=== PATIENT | female | born 2005 | race Caucasian/White ===

== ENCOUNTER → 2023-07-08 19:53 | Outpatient (REF) | payer OTHER, SELFPAY | LOC: MRI 19:53 | PROVIDERS: ATTENDING PHYSICIAN Psychiatry & Neurology Neurology; FAMILY PHYSICIAN Nurse Practitioner Family | DX: G43.109 Migraine with aura, not intractable, without status migrainosus (principal) | CPT/HCPCS: 70553; A9575 ==

== ENCOUNTER → 2023-11-19 08:26 | Outpatient (REF) | payer OTHER, SELFPAY | LOC: RCS 08:26 | PROVIDERS: ATTENDING PHYSICIAN Family Medicine | DX: R00.2 Palpitations (principal); R07.89 Other chest pain; R06.09 Other forms of dyspnea | CPT/HCPCS: 93225; 93226 ==

== ENCOUNTER → 2023-11-22 10:28 | Outpatient (REF) | payer OTHER, SELFPAY | LOC: RCS 10:28 | PROVIDERS: ATTENDING PHYSICIAN Family Medicine | DX: R00.2 Palpitations (principal); R07.89 Other chest pain; R06.09 Other forms of dyspnea | CPT/HCPCS: 93306 ==

== ENCOUNTER → 2023-12-02 13:07 | Outpatient (REF) | payer OTHER, SELFPAY | LOC: RCS 13:07 | PROVIDERS: ATTENDING PHYSICIAN Internal Medicine Cardiovascular Disease; FAMILY PHYSICIAN Nurse Practitioner Family | DX: R07.9 Chest pain, unspecified (principal); R06.09 Other forms of dyspnea; I05.9 Rheumatic mitral valve disease, unspecified | CPT/HCPCS: 93017; 93350 ==

== ENCOUNTER → 2023-12-24 11:07 | Outpatient (REF) | payer OTHER, SELFPAY | LOC: RAD 11:07 | PROVIDERS: ATTENDING PHYSICIAN Internal Medicine Cardiovascular Disease; FAMILY PHYSICIAN Nurse Practitioner Family; REFERRING PHYSICIAN Internal Medicine Critical Care Medicine | DX: R07.9 Chest pain, unspecified (principal); R94.39 Abnormal result of other cardiovascular function study | CPT/HCPCS: 75574; Q9967 ==

== ENCOUNTER 2024-03-16 05:31 | Emergency (ER) | payer OTHER, SELFPAY ==
[2024-03-16 05:31] VITALS: BMI 21.3
[2024-03-16 05:52] VITALS: BP 118/84
[2024-03-16 06:00] VITALS: BP 108/57
--- NOTE | 2024-03-16 09:43 | ED.GENMED ---
History of Present Illness
General
Chief Complaint: Cold/Flu/URI Symptoms
Source: patient
Exam Limitations: none
Time Seen by Provider: 03/16/24 09:16
Nursing documentation reviewed up to this point in time: agreed with
History of Present Illness
History of Present Illness:
Patient is a 18-year-old female with history of mitral valve prolapse who presents to the ER for evaluation. Patient started with cough yesterday however was awoke in the middle of the night with chills and chest and back pain. Patient has not
taken anything for discomfort.
She does not smoke. She was on progesterone only oral contraception however because of migraines and stopped that a month ago. He denies any shortness of breath. Family was also sick with similar symptoms of upper respiratory tract infection as
per mom. Patient feels very nauseous has not been able to drink fluids because of nausea.
Past History
Past History
ED Past Medical History: None
ED Past Surgical History: None
Social History
Tobacco: Non-smoker
Alcohol: None
Drug: None
Personal: Single
Living: with family
Employment: Student
Family History
Family History: Other (Noncontributory)
Review of Systems
Review of Systems
Allergies reviewed?: Yes
Other source history: family
All Other Systems: ROS reviewed and negative except as documented in HPI and ROS
Constitutional: Reports fever, fatigue and chills
Respiratory: Reports cough; Denies trouble breathing
Cardiac: Reports other (chest /back pain )
ABD/GI: Reports no symptoms
: Reports no symptoms
Musculoskeletal: Reports no symptoms
Skin: Reports no symptoms
Neurological: Reports no symptoms
Psychiatric: Reports no symptoms
Phy Exam
General Physical Exam
General Presentation: no apparent distress
General age: appears stated age
General Skin: warm and dry
General Habitus: normal
General Mental: alert
General Hydration: appears well hydrated
Cardiovascular Exam
Cardiovascular Exam: regular rate/rhythm, no murmur and normal peripheral pulses
Pulmonary Exam
Pulmonary Exam: lungs clear and no respiratory distress
Sepsis
Sepsis Screening
Sepsis Assessment: Sepsis Ruled Out
Sepsis Screen
Sepsis Screen: Sepsis Ruled Out
Date: 03/17/24
Time: 13:02
Course
Orders/Labs/Results
Orders:
Orders
03/16/24 05:32
ECG [Electrocardiogram (*1)] Urgent
Reason for Study: Chest Pain
03/16/24 05:33
EKG- Treatment ONCE
03/16/24 05:59
Influenza A+B Rapid Molecular Urgent
TORSTEN Source: Nasal Swab
Specimen Description:
Date Specimen was Collected: 03/16/24
Time Specimen was Collected: 05:56
Rapid Strep Group A Urgent
TORSTEN Source: Throat/Pharynx
Specimen Description:
Date Specimen was Collected: 03/16/24
Time Specimen was Collected: 05:56
03/16/24 07:48
CR Chest - 2 Views Urgent
Comment:
Reason For Exam: cough
03/16/24 09:59
0.9% Sodium Chloride 1000 ml [Nss] 1,000 ml IV BOLUS
03/16/24 10:00
Ketorolac [Toradol] 15 mg IV NOW STA
03/16/24 10:04
Vital Signs- Treatment ONCE
Frequency: Once
03/16/24 10:39
Vital Signs- Treatment ONCE
Frequency: Once
03/16/24 11:05
Complete Blood Count/With Diff Urgent
Comprehensive Metabolic Panel Urgent
DDimer [D-Dimer] Urgent
03/16/24 11:06
COVID-19 Antigen Urgent
Source: Nasal Swab
Abnormal Lab Results
03/16/24
11:05
Plt Count 126 L 10^3/uL
(130-400)
MPV 10.7 H fL
(7.4-10.4)
Absolute Lymphs (auto) 0.3 L 10^3/uL
(1.2-3.4)
Neutrophils % 87.4 H %
(42.2-75.2)
Lymphocytes % 5.3 L %
(20.5-51.1)
Sodium 134 L mmol/L
(135-145)
03/16/24 11:05
03/16/24 11:05
Vital Signs
Initial and Last Documented VS:
Initial Vital Signs
Temp Pulse Resp BP Pulse Ox
99.6 F 122 24 118/84 100
03/16/24 05:52 03/16/24 05:52 03/16/24 05:52 03/16/24 05:52 03/16/24 05:52
Last Documented Vital Signs
Temp Pulse Resp BP Pulse Ox
100.7 F H 112 18 108/57 100
03/16/24 11:50 03/16/24 11:50 03/16/24 11:50 03/16/24 11:50 03/16/24 11:50
MDM/Problems Addressed
Differential Diagnosis Includes:
Not limited to COVID, influenza, pneumonia, viral syndrome
MDM/Problems Addressed:
Symptoms are consistent with viral syndrome. Family also has similar symptoms. Patient is nontoxic ; she is not actually short of breath. She has no risk factors for PE however D-dimer done and negative. Her labs reviewed her white count is
normal she did present with a low-grade temperature and tachycardic. Patient was given Toradol fluids feeling better. Negative COVID-negative flu likely viral syndrome discussed supportive care. Discussed with mom at bedside as well.
*Radiology
Radiology exam reviewed: radiology read reviewed
*Pulse Oximetry
Patient hypoxic: no
*EKG
Interpreted by ED Provider?: Yes
Comparison EKG: no changes
Heart Rate: 114
Rate: tachycardiac
Rhythm: sinus
Ischemia: no ischemia
*Critical Care Note
Total Time (30-74mins, 75-104mins- exclusive of procedures): Not Applicable
ED Attending Note
-
Portions of this chart may have been created with voice recognition software.� Occasional wrong word or��sound alike� substitutions may have occurred due to the inherent limitations of voice recognition software.
Discharge Plan
Departure
Patient Disposition: Home (Routine Discharge)
Date of Disposition: 03/16/24
Time of Disposition: 12:36
Patient with high blood pressure during this ER visit?: No
Condition: Fair
Covid-19: Not Applicable
Discharge Problem:
Acute viral syndrome
Instructions: Viral Syndrome (DC)
Prescriptions:
No Action
minocycline 100 mg Capsule
100 mg PO BID
norethindrone (contraceptive) 0.35 mg Tablet
0.35 mg PO DAILY
Nurtec ODT 75 mg Tablet,Disintegrating
75 mg PO Q48H
Referrals:
Mari Arreola CRNP [Family Provider] -
Activity Restrictions/Additional Instructions:
Patient to drink plenty fluids. You may alternate ibuprofen and Tylenol for fever chills body aches. Close follow-up with family doctor in the next several days return if any worsening of symptoms
Interventions
Interventions:
*Risk Screen - Suicide Last Done: 03/16/24 05:52
*Neglect/Abuse Screening Last Done: 03/16/24 05:52
*Nursing Disposition Last Done: 03/16/24 13:16
ED- Cardiac Assessment Last Done: 03/16/24 11:53
ED- Pulmonary Assessment Last Done: 03/16/24 11:53
Discharge Date and Time
Discharge Date/Time: 03/16/24 13:16
Print Language: WOLOF
[2024-03-16] MEDS: NSS 1000 IV (11:11)
[2024-03-16] MEDS: TORADOL 15 MG IV (11:11)
[2024-03-16 11:24] LABS: % Basophils 0.2 % (0-2); % Eosinophils 0.2 % (0-6); % Immature Granulocytes 0.4 % (0-0.5); % Lymphocytes 5.3 % (20.5-51.1); % Monocytes 6.5 % (1.7-9.3); % Neutrophils 87.4 % (42.2-75.2); Absolute Lymphocytes 0.3 10^3/uL (1.2-3.4); Absolute Monocytes 0.3 10^3/uL (0.1-0.6); Absolute Neutrophils 4.4 10^3/uL (1.4-6.5); Hematocrit 38.9 % (37.0-47.0); Hemoglobin 13.4 g/dL (12.0-16.0); Mean Corp Hgb Conc. 34.4 g/dL (33.0-37.0); Mean Corpuscular Hgb 29.3 pg (27.0-31.0); Mean Corpuscular Volume 84.9 fL (81.0-99.0); Mean Platelet Volume 10.7 fL (7.4-10.4); Nucleated Red Blood Cells % 0 %; Platelet Count 126 10^3/uL (130-400); Red Blood Cell Count 4.58 10^6/uL (4.20-5.40); White Blood Cell Count 5.1 10^3/uL (4.8-10.8)
[2024-03-16 11:39] LABS: COVID-19 Antigen Negative (Negative)
[2024-03-16 11:41] LABS: ALT (SGPT) 31 U/L (0-35); AST (SGOT) 31 U/L (14-36); Albumin 4.5 g/dl (3.5-5.0); Alkaline Phosphatase 65 U/L (38-126); Blood Urea Nitrogen 12 mg/dl (7-17); Calcium 9.1 mg/dl (8.4-10.2); Carbon Dioxide 22 mmol/L (22-30); Chloride 102 mmol/L (98-107); Estimated Creatinine Clearance 101 ml/min; Glucose 92 mg/dl (70-99); Potassium 4.2 mmol/L (3.5-5.1); Sodium 134 mmol/L (135-145); Total Bilirubin 0.8 mg/dl (0.2-1.3); eGFR > 60.00
[2024-03-16 11:50] VITALS: BP 108/57
[2024-03-16 12:11] LABS: D-Dimer < 0.27 ug/mlFEU (0.00-0.50)
== END 2024-03-16 13:16 | disposition home or self-care (01) ==
LOC: EMR 05:31
PROVIDERS: Nurse Practitioner; EMERGENCY PHYSICIAN Emergency Medicine; FAMILY PHYSICIAN Nurse Practitioner Family
DX: B34.9 Viral infection, unspecified (principal); I34.1 Nonrheumatic mitral (valve) prolapse
CPT/HCPCS: 99283; 96374; 96361; 71046; 80053; 85025; 85379; 87070; 87502; 87811; 87880; 93005